=== PATIENT | male | born 1985 | race American Indian/Alaskan Native ===

== ENCOUNTER 2021-10-09 06:35 | Emergency (ER) | payer OTHER ==
[2021-10-09] MEDS ORDERED: SODIUM CHLORIDE 0.9% 1000 ML 1,000 ML IV ONE (06:45)
[2021-10-09 06:46] VITALS: BP 117/66
--- NOTE | 2021-10-09 06:48 | Emergency Department Report ---
ED Abdominal Pain HPI - General Stated Complaint: NAUSEA, VOMITING, DIARRHEA Time Seen by Provider: 10/09/21 06:45 - History of Present Illness Initial Comments: [place] secondary to nausea, vomiting, and diarrhea. He has had abdominal cramps associated with this. Symptoms started about 4 AM. Last night, he ate some salmon with vegetables. He is not sure if that is what triggered his symptoms this morning. Other people ate the same food. No one else became ill. He has had no fevers or chills. There is no coffee-ground emesis or hemoptysis. He has had no hematemesis or melena. Patient denies recent illness. He has no trauma. There is been no travel out of the country. He has not been on antibiotics lately. The abdominal cramps are described as intermittent and diffuse in nature. The abdominal cramps do not radiate or migrate. EMS administered Zofran in route. Patient states that the nausea is improved. - Related Data Previous Rx's Medication Instructions Recorded Last Taken Type Ondansetron [Zofran ODT TAB] 8 mg PO Q8HR PRN #20 tab.rapdis 10/09/21 Unknown Rx Allergies Allergy/AdvReac Type Severity Reaction Status Date / Time No Known Allergies Allergy Unverified 10/09/21 06:46 ED Review of Systems ROS: Stated complaint: NAUSEA, VOMITING, DIARRHEA Other details as noted in HPI Comment: All other systems reviewed and negative Constitutional: denies: fever Eyes: denies: vision change ENT: denies: throat pain Respiratory: denies: cough Cardiovascular: denies: chest pain Endocrine: denies: unexplained weight loss Gastrointestinal: as per HPI Genitourinary: denies: dysuria Musculoskeletal: denies: back pain Skin: denies: rash Neurological: denies: headache Hematological/Lymphatic: denies: easy bruising ED Past Medical Hx - Past Medical History Previous Medical History?: No - Family History Family history: no significant - Medications Home Medications: Home Medications Medication Instructions Recorded Confirmed Last Taken Type Ondansetron [Zofran ODT TAB] 8 mg PO Q8HR PRN #20 tab.rapdis 10/09/21 Unknown Rx ED Physical Exam - General Limitations: No Limitations, Other ( Pulse ox noted and normal by EMS) General appearance: alert, in no apparent distress - Head Head exam: Present: atraumatic, normocephalic, normal inspection - Eye Eye exam: Present: normal appearance, EOMI. Absent: scleral icterus - ENT ENT exam: Present: normal exam, mucous membranes moist, normal external ear exam - Neck Neck exam: Present: normal inspection. Absent: meningismus - Respiratory Respiratory exam: Present: normal lung sounds bilaterally. Absent: respiratory distress - Cardiovascular Cardiovascular Exam: Present: regular rate, normal rhythm - GI/Abdominal GI/Abdominal exam: Present: soft, tenderness ( mild generalized). Absent: guarding, rebound - Extremities Exam Extremities exam: Present: normal capillary refill. Absent: pedal edema - Back Exam Back exam: Absent: CVA tenderness (R) - Neurological Exam Neurological exam: Present: alert, oriented X3, CN II-XII intact. Absent: motor sensory deficit - Psychiatric Psychiatric exam: Present: normal affect, normal mood - Skin Skin exam: Present: warm, dry ED Course Vital Signs 10/09/21 06:42 Temperature 98.2 F Pulse Rate 101 H Respiratory 18 Rate Blood Pressure 117/66 [Left] O2 Sat by Pulse 97 Oximetry - Reevaluation(s) Reevaluation #1: 10/09/21 06:40 EMS was met upon arrival. IV and labs were ordered. Old records reviewed. Reevaluation #2: 10/09/21 08:43 Patient was discharged ED Medical Decision Making - Lab Data Result diagrams: 10/09/21 07:51 10/09/21 07:51 - Medical Decision Making patient presents with nausea, vomiting, and diarrhea. He did report having abdominal cramps. Abdomen at this point is soft and nontender. No rebound or guarding. He has had no further vomiting. There is no hematemesis noted. Patient was tolerating liquids and at this point it was felt he can be discharged home. He does not have evidence of acute cholecystitis, hepatitis, or pancreatitis. Critical Care Time: No Critical care attestation.: If time is entered above; I have spent that time in minutes in the direct care of this critically ill patient, excluding procedure time. ED Disposition Clinical Impression: Nausea vomiting and diarrhea Disposition: HOME / SELF CARE / HOMELESS Is pt being admited?: No Condition: Stable Instructions: Nausea and Vomiting, Adult Additional Instructions: Have a bland diet peer drinking water pill return for problems. Follow-up with your regular physician for recheck and further management. Prescriptions: Ondansetron [Zofran ODT TAB] 8 mg PO Q8HR PRN #20 tab.rapdis PRN Reason: Nausea Referrals: PRIMARY CARE, [Referring] - 3-5 Days TAISHA NOLAN MD [Staff Physician] - 3-5 Days
[2021-10-09 08:02] LABS: Hematocrit 46.6 % (35.5-45.6); Hemoglobin 14.8 gm/dl (11.8-15.2); Mean Corpuscular HGB Conc 32 % (32-34); Mean Corpuscular Volume 79 fl (84-94); Platelet Count 265 K/mm3 (140-440); Red Blood Count 5.87 M/mm3 (3.65-5.03); Red Cell Distribution Width 14.7 % (13.2-15.2)
[2021-10-09 08:23] LABS: Alanine Aminotransferase 25 units/L (7-56); Albumin 4.7 g/dL (3.9-5); BUN/Creatinine Ratio 14; Blood Urea Nitrogen 17 mg/dL (9-20); Calcium 9.5 mg/dL (8.4-10.2); Hemolysis Index 13
== END 2021-10-09 09:11 | disposition home or self-care (01) ==
LOC: ED 06:35
DX: R11.2 Nausea with vomiting, unspecified (principal); R19.7 Diarrhea, unspecified
CPT/HCPCS: 36415; 80053; 85027; 96360; 99283; J7030